=== PATIENT | female | born 1950 | race Caucasian/White ===

== ENCOUNTER → 2016-03-31 | Outpatient (CLI) | payer OTHER | LOC: BHLMT 13:00 | PROVIDERS: ATTEND Internal Medicine Cardiovascular Disease | DX: R01.1 Cardiac murmur, unspecified (principal); R94.31 Abnormal electrocardiogram [ECG] [EKG]; R00.2 Palpitations; R42 Dizziness and giddiness | CPT/HCPCS: 93005-PO ==

== ENCOUNTER → 2016-04-17 | Outpatient (CLI) | payer OTHER | LOC: BHLMT 10:45 | PROVIDERS: ATTEND Internal Medicine Interventional Cardiology | DX: R00.2 Palpitations (principal); R01.1 Cardiac murmur, unspecified | CPT/HCPCS: 93306-PO ==